=== PATIENT | male | born 1955 | race Caucasian/White ===

== ENCOUNTER 2017-08-29 11:20 | Emergency (ER) | payer OTHER ==
[~2017-08-29] VITALS: Ht 182.9 cm; Wt 104.3 kg
[~2017-08-29 11:20] MED LIST: CITRATE OF MAG296 ML PO
[2017-08-29 11:36] LABS: HEMATOCRIT 43.4 % (42.0-52.0); HEMOGLOBIN 14.8 gm/dL (14.0-18.0); MCHC 34.2 g/dL (28.0-37.0); MCV 96.5 fL (80.0-100.0); RBC 4.49 mil/uL (4.50-6.00); RDW 13.3 % (10.5-14.5); WBC 6.7 thou/uL (4.0-11.0)
[2017-08-29 11:45] LABS: CALCIUM 9.3 mg/dL (8.5-10.1); CREATININE 1.2 mg/dL (0.7-1.3); POTASSIUM 3.8 mmol/L (3.5-5.1)
[2017-08-29 11:51] LABS: TOTAL BILIRUBIN 0.3 mg/dL (<0.1-1.0); TOTAL PROTEIN 7.3 g/dL (6.4-8.2)
[2017-08-29 12:07] LABS: URINE BILIRUBIN 1+ (Negative); URINE BLOOD 3+ (Negative); URINE CLARITY CLEAR; URINE COLOR YELLOW; URINE GLUCOSE-RANDOM* NEGATIVE (Negative); URINE KETONES NEGATIVE (Negative); URINE LEUKOCYTES NEGATIVE (Negative); URINE NITRITE NEGATIVE (Negative); URINE PROTEIN (DIPSTICK) 2+ (Negative); URINE SPECIFIC GRAVITY 1.025 (1.005-1.035)
[2017-08-29 12:10] LABS: ICTOTEST (BILI CONFIRMATORY) Negative (Negative)
[2017-08-29 12:19] LABS: CASTS None Seen /LPF (None Seen); CRYSTALS None Seen /LPF (None Seen); MUCUS 4-6 Moderate strn/LPF (None Seen); URINE WBC 0-5 Rare /HPF (0-5)
[2017-08-29 12:21] LABS: SQUAMOUS 0-3 Few /LPF (0-3)
[2017-08-29 12:22] LABS: BACTERIA 1-9 Few /HPF (None Seen)
[2017-08-29] MEDS ORDERED: PERCOCET 5-3251 EACH PO (12:47)
[2017-08-29] MEDS ORDERED: FLOMAX0.4 MG PO (12:48)
[2017-08-29] MEDS ORDERED: KEFLEX500 M1 PO (12:48)
== END 2017-08-29 12:59 | disposition home or self-care (01) ==
LOC: ER 11:20
PROVIDERS: Physician Assistant
DX: N20.0 Calculus of kidney (principal); N39.0 Urinary tract infection, site not specified

== ENCOUNTER 2021-06-13 19:35 | Inpatient (IN) | payer OTHER ==
[~2021-06-13] VITALS: Ht 182.9 cm; Wt 117.9 kg
[~2021-06-13 19:35] MED LIST changes: +FLOMAX0.4 MG PO; +KEFLEX500 M1 PO; +PERCOCET 5-3251 EACH PO
[2021-06-13 19:42] VITALS: BP 133/62
[2021-06-13 20:35] LABS: HEMATOCRIT 39.5 % (42.0-52.0); HEMOGLOBIN 13.5 gm/dL (14.0-18.0); MCHC 34.2 g/dL (28.0-37.0); MCV 96.7 fL (80.0-100.0); RBC 4.08 mil/uL (4.50-6.00); RDW 13.1 % (10.5-14.5); WBC 9.2 thou/uL (4.0-11.0)
[2021-06-13 20:52] LABS: CALCIUM 8.8 mg/dL (8.5-10.1); CREATININE 1.2 mg/dL (0.7-1.3); POTASSIUM 3.1 mmol/L (3.5-5.1)
[2021-06-13 21:06] LABS: ALBUMIN 3.6 g/dL (3.4-5.0); TOTAL BILIRUBIN 0.2 mg/dL (0.2-1.0); TOTAL PROTEIN 7.2 g/dL (6.4-8.2)
[2021-06-13 23:02] LABS: INR 0.98; PROTIME 10.7 Seconds (10.5-12.1)
[2021-06-14] VITALS (11 sets, daily range): BP systolic 105–152; BP diastolic 58–82
[2021-06-14] MEDS ORDERED: CARBIDOPA-LEVO1 EAC7 PO (00:01)
[2021-06-14] MEDS ORDERED: DOXAZOSIN MESYLA8 MG PO (00:02)
[2021-06-14 05:31] LABS: CHOLESTEROL 267 mg/dL (<200); HDL CHOLESTEROL 57 mg/dL (>40); LDL CHOLESTEROL 203 mg/dL (<100); TC:HDL 4.7 Ratio (Not establshd); TRIGLYCERIDE 35 mg/dL (<150); VLDL 7 mg/dL (<40)
[2021-06-14 05:32] LABS: SERUM ASSESSMENT Clear
[2021-06-14 05:37] LABS: CALCIUM 9.1 mg/dL (8.5-10.1); CREATININE 1.1 mg/dL (0.7-1.3)
[2021-06-14 05:40] LABS: POTASSIUM 4.2 mmol/L (3.5-5.1)
--- NOTE | 2021-06-14 06:53 | EKG ---
[place] [address] [employer] 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 : 1955 Requested By: Jade Morgan Order Number: [id number] MD: Kenneth Vidales Measurements Intervals [place] Rate: 71 P: 46 WY: 159 QRS: -8 QRSD: 110 T: 87 QT: 391 QTc: 425 Interpretive Statements Sinus rhythm Probable left atrial enlargement Borderline repolarization abnormality Baseline wander in lead(s) V1,V6 Compared to ECG 07/27/2011 17:09:52 T-wave abnormality no longer present Electronically Signed On 06-14-2021 6:53:27 MOTOR VEHICLE PARTS INTERPRETER by Kenneth Vidales [email or web address] <ELECTRONICALLY SIGNED> By: Kenneth Vidales MD, [facility] 06/14/21 0653 2000 99 Kenneth Vidales MD, FAC /EPI
--- NOTE | 2021-06-14 06:53 | EKG ---
[place] [address] [address] 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
--- NOTE | 2021-06-14 08:45 | 2DMMODE ---
[facility] [place] [address] 2 D/M-MODE ECHOCARDIOGRAM Name: GABE COY Room #: 210-P ADM IN M.R.#: [id number] Admission: 06/13/21 Attend Phys: Jennyfer Ventura Discharge: Date of : 57 Report #: [id number] THIS REPORT FOR: cc: Blanca Malik,Blanca Arce,Pepe Jackson MD [facility] ~ APPROVED REPORT Study performed: 06/14/2021 09:03:53 EXAM: Comprehensive 2D, Doppler, and color-flow Echocardiogram Patient Location: Bedside Room #: 210 Status: routine BSA: 2.38 HR: 71 bpm BP: 133/78 mmHg Rhythm: Sinus Arrhythmia Other Information Study Quality: Adequate Indications Chest Pain NSTEMI 2D Dimensions IVSd: 10.28 (7-11mm) LVOT Diam: 23.54 (18-24mm) LVDd: 53.99 mm PWd: 9.86 (7-11mm) Ascending Ao: 34.77 (22-36mm) LVDs: 37.29 (25-40mm) Left Atrium: 34.96 (27-40mm) Aortic Root: 39.63 mm Volumes Left Atrial Volume (Systole) Single Plane 4CH: 38.51 mL Single Plane 2CH: 42.45 mL LA ESV Index: 19.00 mL/m2 Aortic Valve AoV Peak Leroy.: 1.33 m/s AO Peak Gr.: 7.04 mmHg LVOT Max P.07 mmHg LVOT Max V: 1.23 m/s FRANTZ Vmax: 4.04 cm2 [facility] [address] [place] [address] 2 D/M-MODE ECHOCARDIOGRAM Name: GABE COY Room #: 210-P [facility]#: [id number] Admission: 06/13/21 Attend Phys: Jennyfer Goldberg Discharge: Date of : 57 Report #: [id number] Mitral Valve E/A Ratio: 1.4 MV Decel. Time: 187.44 ms MV E Max Leroy.: 0.88 m/s MV A Leroy.: 0.63 m/s MV PHT: 54.36 ms IVRT: 72.66 ms Pulmonary Valve PV Peak Leroy.: 1.08 m/s PV Peak Gr.: 4.64 mmHg Left Ventricle The left ventricle is normal size. There is normal LV segmental wall motion. There is normal left ventricular wall thickness. Left ventricular systolic function is normal. LVEF is 55-60%. The left ventricular diastolic function is normal. Right Ventricle The right ventricle is normal size. The right ventricular systolic function is normal. Atria The left atrium size is normal. The right atrium size is normal. Aortic Valve Aortic valve is trileaflet. No aortic regurgitation is present. There is no aortic valvular stenosis. Mitral Valve The mitral valve is normal in structure. Trace mitral regurgitation. No evidence of mitral valve stenosis. Tricuspid Valve The tricuspid valve is normal in structure. There is no tricuspid valve regurgitation noted. Unable to assess PA pressure. Pulmonic Valve The pulmonary valve is normal in structure. Trace pulmonic regurgitation. Great Vessels The aortic root is normal in size. The ascending aorta is normal in size. IVC is not well visualized. [facility] [address] [place] [address] 2 D/M-MODE ECHOCARDIOGRAM Name: GABE COY Room #: 210-[facility] IN ..#: [id number] Admission: 06/13/21 Attend Phys: Jennyfer Goldberg Discharge: Date of : 57 Report #: [id number] Pericardium There is no pericardial effusion. <Conclusion> Left ventricular systolic function is normal. There is normal LV segmental wall motion. LVEF is 55-60%. The left ventricular diastolic function is normal. Aortic valve is trileaflet. No aortic regurgitation or stenosis The mitral valve is normal in structure. Trace mitral regurgitation. Unable to assess pulmonary artery pressure. There is no pericardial effusion. <ELECTRONICALLY SIGNED> By: Pepe Duran MD, [facility] 06/14/21 0845 0845 0845 Pepe Duran MD, FACC /INF
[2021-06-14] MEDS ORDERED: ALLEGRA ALLERG180 MG PO (10:47)
[2021-06-15 01:06] LABS: GLYCOHEMOGLOBIN (HGB A1C) 5.7 % (4.8-5.6)
[2021-06-15 04:17] VITALS: BP 88/54
[2021-06-15 07:00] VITALS: BP 104/64
[2021-06-15] MEDS ORDERED: NITROGLYCERIN0.4 MG SUBLING (08:12)
[2021-06-15] MEDS ORDERED: ATORVASTATIN CA80 MG PO (08:12)
[2021-06-15] MEDS ORDERED: METOPROLOL TART25 MG PO (08:12)
[2021-06-15] MEDS ORDERED: CLOPIDOGREL75 MG PO (08:12)
[2021-06-15] MEDS ORDERED: ASPIRIN325 PO (08:12)
[2021-06-15 10:26] VITALS: BP 104/64
[2021-06-15] MEDS ORDERED: FLOMAX0.4 MG PO (10:44)
--- NOTE | 2021-06-27 15:07 | CATHLAB ---
[facility] [address] [place] [address] INVASIVE PROCEDURE REPORT Name: GABE COY Room #: 210-P DIS IN M.R.#: [id number] Admission: 06/13/21 Attend Phys: Jennyfer Lozoya Lorenzo Discharge: 06/15/21 Date of : 57 Report #: [id number] THIS REPORT FOR: cc: Blanca Malik Susan DO Lammoglia, Francisco J. MD ~ APPROVED REPORT Study performed: 06/14/2021 17:00:04 Patient Details Patient Status: In-Patient Room #: 210 The patient is a 65 year-old male Event Personnel Kelvin Crane Machine Farmworker, Donna Sanchez RN RN, Bárbara Torres Paschal, Ja'net RTR Monitor Procedures Performed Left Heart Cath w/or w/o Coronaries [id number] [facility] MARCO AN[address]IO Place w/wo Plasty Single LAD 963043 Art Access - R femoral artery* 31283 Initial Mod Sed Same Phys/QHP Gr 105894 41407 Mod Sed Same Phys/QHP Ea 624277, supervision conscious sedation Indication Chest pain Procedure Narrative The Right Groin^ was infiltrated with 1% Lidocaine subcutaneous anesthesia. A PINNACLE 5FR Sheath #[id number] sheath was inserted into the RFA^. Coronary angiography was performed using coronary diagnostic catheters. The right coronary system was accessed and visualized with a 5FR JR 4 #[id number] catheter. The left coronary system was accessed and visualized with a 5FR JL4 #[id number] catheter. The left ventricle was accessed and visualized with a 5FR JR 4 #[id number] catheter. Left ventricular/Aortic Valve gradient assessed via catheter pullback. Left ventriculogram was performed in 30 degree projection. Closure device was deployed with a Fr MYNXGRIP 6/7F #[id number]. The patient tolerated the procedure well and there were no complications associated with the procedure. There was no hematoma. Intraoperative Conscious Sedation Sedation start time: 17:29 Case end Time: [facility] [address] [place] [address] INVASIVE PROCEDURE REPORT Name: GABE COY Room #: 210-P [facility].#: [id number] Admission: 06/13/21 Attend Phys: Jennyfer Goldberg Discharge: 06/15/21 Date of : 57 Report #: [id number] 18:20 Versed 2 mg Fluoro Time: 8.41 minutes Dose: DAP 6390.80 cGycm2 984 mGy Contrast Type and Amount: Omnipaque 130 ml Coronary Angiography The patient's coronary anatomy is right dominant. Diagnostic Cath Left Main Large-caliber vessel bifurcates left into descending the circumflex free of high-grade disease LAD Moderate to large caliber type III vessel which courses in the anterior ventricular sulcus. The proximal portion of the LAD proper there is an eccentric lesion of at least 75% stenosis. There is a focal point that appears to be more high-grade with possibly slowed contrast filling beyond but still ANIA-3 flow. The LAD proper continues giving rise to diagonal septal branches as it courses in the anterior interventricular sulcus tapering and hooking the apex and terminating the posterior aspect of the inferior wall. Beyond the initial proximal abnormalities the vessel only has luminal irregularity Diagonal 1 Diminutive to small caliber vessel free of high-grade disease Diagonal 2 Diminutive size vessel Circumflex Moderate to large caliber vessel coursing the AV groove with a moderate caliber marginal branch vessel disease present. Beyond this the vessel continues on is a smaller caliber vessel giving rise to small posterior wall branches and a posterior wall terminal portion no high-grade lesions are present no irregularities are noted OM1 Monitor large-caliber vessel with luminal irregularities less than 30% as it courses on the lateral aspect of the ventricle no high-grade lesion present OM2 Small caliber vessel with irregularities that are nonobstructive Right Coronary Small caliber dominant vessel of normal origin proceeds in the AV groove giving rise to small atrial and ventricular branches then continues to the crux of the heart rate gives rise to small posterior descending artery without high-grade lesions noted. Luminal irregularities depressed R PDA Small caliber vessel without high-grade lesions present Left Ventriculography Left Ventriculography was not performed. [address] [address] INVASIVE PROCEDURE REPORT Name: GABE COY Room #: 210-P [facility] IN M.R.#: [id number] Admission: 06/13/21 Attend Phys: Jennyfer Goldberg Discharge: 06/15/21 Date of : 57 Report #: [id number] Hemodynamics The aortic pressure is 134/76 mmHg with a mean of 100 mmHg. The left ventricular pressure is 131/9 mmHg with a mean of mmHg. The left ventricular end diastolic pressure is 37 mmHg. There was no gradient across the aortic valve upon pullback. PCI Technique As per prior discussion before initiation of the case and the proximal lesion within significant angiographically. The system was then exchanged for a 6 Frisian system and a standard JL 4 guide was engaged. A 014 wire was then advanced distally under fluoroscopic visualization. A 3.5 x 18 mm MARCO ANTONIO resolute stent was positioned across the lesion and primarily deployed. Inflations were performed repeatedly for maximal stent expansion. Post procedure there was no loss of side branches stabilization to luminal thrombus noted. Final pictures were obtained and documented. Wires removed patient tolerated procedure well there were no complication PCI Technique Lesion Anticoagulation was achieved with Angiomax. Percutaneous coronary intervention was performed on the proximal left anterior descending artery segment. A LAUNCHER 6FR JL4 #[id number] Guide Catheter was used to engage the LAD ostium. A Luge Wire .014 x 182CM #[id number] Interventional Guidewire was used to cross the lesion. STENT DEPLOYMENT A stent RESOLUTE BRADEN RX 3.5 X 18 #[id number] was inserted and inflated up to 16.00atm for 12seconds. Additional Inflation: 14.00atm for 7seconds. Conclusion 1. Coronary disease, severe, single-vessel 2. Abnormal hemodynamics with mildly elevated limited end-diastolic pressure 3. Successful percutaneous revascularization with 3.5 x 18 mm MARCO ANTONIO resolute stent taken to 16 susana Recommendations Cardiac Risk Reduction Program Dual antiplatelet treatment per guidelines and protocols <ELECTRONICALLY SIGNED> By: Kelvin Crane MD 06/27/21 1507 150 150 Kelvin Crane MD /INF
== END 2021-06-15 12:10 | disposition home or self-care (01) | DRG 246 ==
LOC: ER 19:35 → 2N 23:32 → EROBS 23:32 → 2N 06-14 07:52
PROVIDERS: Nurse Practitioner Family; Student in an Organized Health Care Education/Training Program; ADMIT Hospitalist; ATTEND Hospitalist
PROC: 4A023N7 Measurement of Cardiac Sampling and Pressure, Left Heart, Percutaneous Approach (ICD-10-PCS; principal; 2021-06-14)
PROC: B2111ZZ Fluoroscopy of Multiple Coronary Arteries using Low Osmolar Contrast (ICD-10-PCS; principal; 2021-06-14)
PROC: 027034Z Dilation of Coronary Artery, One Artery with Drug-eluting Intraluminal Device, Percutaneous Approach (ICD-10-PCS; principal; 2021-06-14)
DX: I21.4 Non-ST elevation (NSTEMI) myocardial infarction (principal); I50.31 Acute diastolic (congestive) heart failure; E87.6 Hypokalemia; I95.9 Hypotension, unspecified; R73.9 Hyperglycemia, unspecified; K80.20 Calculus of gallbladder without cholecystitis without obstruction; E78.5 Hyperlipidemia, unspecified; J45.909 Unspecified asthma, uncomplicated; I25.10 Atherosclerotic heart disease of native coronary artery without angina pectoris; G20 Parkinson's disease; N40.0 Benign prostatic hyperplasia without lower urinary tract symptoms; Z20.822 Contact with and (suspected) exposure to COVID-19; Z87.442 Personal history of urinary calculi; Z79.899 Other long term (current) drug therapy
CPT/HCPCS: 10081

== ENCOUNTER 2021-09-18 10:33 | Emergency (ER) | payer OTHER ==
[~2021-09-18] VITALS: Ht 185.4 cm; Wt 113.4 kg
[~2021-09-18 10:33] MED LIST changes: +ALLEGRA ALLERG180 MG PO; +ASPIRIN325 PO; +ATORVASTATIN CA80 MG PO; +CARBIDOPA-LEVO1 EAC7 PO; +CLOPIDOGREL75 MG PO; +DOXAZOSIN MESYLA8 MG PO; +METOPROLOL TART25 MG PO; +NITROGLYCERIN0.4 MG SUBLING
[2021-09-18 11:40] LABS: ABSOLUTE NEUTROPHILS 6.6 thou/uL (1.4-8.2); BASOPHILS 0.5 % (0.0-2.0); EOSINOPHILS 1.3 % (0.0-3.0); HEMATOCRIT 39.6 % (42.0-52.0); HEMOGLOBIN 13.3 gm/dL (14.0-18.0); LYMPHOCYTES 15.8 % (24.0-44.0); MCH 32.8 pg (26.0-34.0); MCHC 33.7 g/dL (28.0-37.0); MCV 97.5 fL (80.0-100.0); MONOCYTES 8.7 % (1.0-8.0); PLATELET COUNT 261 thou/uL (150-400); POLYS 73.7 % (36.0-66.0); RBC 4.06 mil/uL (4.50-6.00); RDW 13.5 % (10.5-14.5); WBC 8.9 thou/uL (4.0-11.0)
[2021-09-18 11:48] LABS: CALCIUM 8.8 mg/dL (8.5-10.1); CREATININE 0.8 mg/dL (0.7-1.3)
[2021-09-18 11:58] LABS: ALBUMIN 3.2 g/dL (3.4-5.0); TOTAL BILIRUBIN 0.5 mg/dL (0.2-1.0); TOTAL PROTEIN 6.7 g/dL (6.4-8.2)
[2021-09-18 13:00] LABS: URINE BILIRUBIN NEGATIVE (Negative); URINE BLOOD NEGATIVE (Negative); URINE CLARITY CLEAR; URINE COLOR YELLOW; URINE GLUCOSE-RANDOM* NEGATIVE (Negative); URINE KETONES NEGATIVE (Negative); URINE LEUKOCYTES-REFLEX NEGATIVE (Negative); URINE NITRITE-REFLEX NEGATIVE (Negative); URINE PROTEIN (DIPSTICK) TRACE (Negative); URINE SPECIFIC GRAVITY >= 1.030 (1.005-1.035); URINE UROBILINOGEN 0.2 E.U./dl (0.2-1.0)
[2021-09-18] MEDS ORDERED: CYCLOBENZAPRINE5 MG PO (13:20)
[2021-09-18] MEDS ORDERED: NORCO5 PO (13:20)
[2021-09-18 13:26] VITALS: BP 118/69
--- NOTE | 2021-09-20 07:36 | EKG ---
[place] [address] [facility] [place] [address] ELECTROCARDIOGRAM REPORT Name: ANNELIESEGABE [facility] [id number] Admission: 09/18/21 Attend Phys: Discharge: 09/18/21 Date of : 57 Report #: [id number] [facility] ED Test Date: 2021-09-18 Test Time: 11:41:28 Pat Name: GABE COY Department: Room: Gender: Clay Miller: PHILL : 1955 Requested By: Efraín Kimble Order Number: [id number] MD: Kenneth Vidales Measurements Intervals [place] Rate: 56 P: 44 MA: 158 QRS: -5 QRSD: 94 T: 35 QT: 417 QTc: 403 Interpretive Statements Sinus rhythm Compared to ECG 06/13/2021 22:34:42 No significant changes Electronically Signed On 09-20-2021 7:36:15 [employer]ATOR [employer] by Kenneth Vidales [email or web address] <ELECTRONICALLY SIGNED> By: Kenneth Vidales MD, [facility] 09/20/21 0736 1141 1141 Kenneth Vidales MD, FACC /EPI
== END 2021-09-18 13:30 | disposition home or self-care (01) ==
LOC: ER 10:33
PROVIDERS: Emergency Medicine
DX: M54.42 Lumbago with sciatica, left side (principal); G20 Parkinson's disease; J45.909 Unspecified asthma, uncomplicated; Z87.442 Personal history of urinary calculi; Z79.82 Long term (current) use of aspirin; Z79.899 Other long term (current) drug therapy; Z79.891 Long term (current) use of opiate analgesic; Z79.1 Long term (current) use of non-steroidal anti-inflammatories (NSAID)